=== PATIENT | male | born 1950 | race Caucasian/White ===

== ENCOUNTER 2019-02-01 18:20 | Emergency (ER) | payer MEDICARE, BC ==
[2019-02-01 18:42] VITALS: BP 118/73; PULSE 77; RESP 18; TEMP 98.3
[2019-02-01] MEDS ORDERED: LIDOCAINE 1% INJ 10MG/ML (20 ML MDV) SQ ONE (19:40)
[2019-02-01] MEDS ORDERED: DIPH,PERTUS(ACELL)TETVAC-LF 0.5 ML VIAL IM ONE (19:41)
[2019-02-01] MEDS ORDERED: IBUPROFEN 400 MG TAB PO STA (19:58)
--- NOTE | 2019-02-01 20:08 | ED ---
General Adult HPI - General Chief complaint: Extremity Injury, Upper Stated complaint: Laceration Time Seen by Provider: 02/01/19 19:00 Source: patient Mode of arrival: ambulatory Limitations: no limitations - History of Present Illness Initial comments: Patient is a 68-year-old male presents emergency Department with a laceration to left hand. Patient states that he was working with a hammer when he tripped and fell on a hammer causing a laceration to the hand. Patient reports the laceration is on the palmar aspect of the left hand. Patient denies taking any medication to relieve the pain. Patient reports the site of injury is tender to palpation. patient is unaware of his tetanus status. Patient reports the pain does not radiate and denies muscle weakness, numbness or tingling. - Related Data Allergies Allergy/AdvReac Type Severity Reaction Status Date / Time No Known Allergies Allergy Verified 02/01/19 18:39 Review of Systems ROS Statement: Those systems with pertinent positive or pertinent negative responses have been documented in the HPI. ROS Other: All systems not noted in ROS Statement are negative. Past Medical History Past Medical History: No Reported History History of Any Multi-Drug Resistant Organisms: None Reported Past Surgical History: Appendectomy, Orthopedic Surgery Past Psychological History: No Psychological Hx Reported Smoking Status: Never smoker Past Alcohol Use History: Occasional Past Drug Use History: None Reported General Exam Limitations: no limitations General appearance: alert, in no apparent distress Head exam: Present: atraumatic, normocephalic, normal inspection Eye exam: Present: normal appearance Pupils: Present: normal accommodation ENT exam: Present: normal exam Neck exam: Present: normal inspection Respiratory exam: Present: normal lung sounds bilaterally Cardiovascular Exam: Present: regular rate, normal rhythm, normal heart sounds Left Shoulder Exam: Present: normal inspection, full ROM Upper Arm exam: Present: normal inspection, full ROM Elbow exam: Present: normal inspection, full ROM Forearm Wrist exam: Present: normal inspection, full ROM Hand Wrist exam: Present: full ROM, laceration (2 laceration measuring 2.57 is a 1 cm on the palmar aspect of the left hand.) Vascular: Present: normal capillary refill, radial pulse, ulnar pulse Back exam: Present: normal inspection Neurological exam: Present: alert, oriented X3 Psychiatric exam: Present: normal affect, normal mood Skin exam: Present: warm, intact, normal color Course Vital Signs 02/01/19 18:39 Temperature 98.3 F Pulse Rate 77 Respiratory 18 Rate Blood Pressure 118/73 O2 Sat by Pulse 98 Oximetry Procedures - Laceration Laceration #1 Consent Obtained: verbal consent Indication: laceration Site: hand Size (cm): 3 Description: linear Depth: simple, single layer Anesthetic Used: lidocaine 1% Anesthesia Technique: local infiltration Amount (mls): 10 Pre-repair: irrigated extensively Type of Sutures: nylon Size of Sutures: 4-0 Number of Sutures: 6 Technique: simple, interrupted Patient Tolerated Procedure: well Medical Decision Making - Medical Decision Making Patient is 68-year-old male presents emergency department with 2 lacerations on his left hand. Patient was given tetanus prophylaxis. Laceration site was repaired with 6 sutures. Patient advised to follow-up with primary care. Patient advised to return to emergency department for suture removal in 10 days. Patient advised to return to emergency department if symptoms worsen. Case discussed with physician. Disposition Clinical Impression: Laceration Disposition: HOME SELF-CARE Condition: Stable Instructions (If sedation given, give patient instructions): Laceration (DC) Additional Instructions: Please follow proper wound care structures. Please return to emergency department for suture removal in 10 days. Please follow up primary care. Please return to the Emergency Department if symptoms worsen or any other concerns. Is patient prescribed a controlled substance at d/c from ED?: No Referrals: Nonstaff,Physician [Primary Care Provider] - 1-2 days Time of Disposition: 21:12
== END 2019-02-01 21:19 | disposition home or self-care (01) ==
LOC: EC 18:20
DX: S61.412A Laceration without foreign body of left hand, initial encounter (principal); Z23 Encounter for immunization; W01.0XXA Fall on same level from slipping, tripping and stumbling without subsequent striking against object, initial encounter; Y92.009 Unspecified place in unspecified non-institutional (private) residence as the place of occurrence of the external cause; Y93.89 Activity, other specified
CPT/HCPCS: 99283; 12002; 90471; 90715; J2001